=== PATIENT | female | born 1995 | race Caucasian/White ===

== ENCOUNTER 2023-04-20 11:46 | Outpatient (CLI) | payer OTHER | END 2023-04-20 11:58 | disposition home or self-care (01) | LOC: NST 11:46 | PROVIDERS: ATTEND Obstetrics & Gynecology | DX: O26.892 Other specified pregnancy related conditions, second trimester (principal); R10.2 Pelvic and perineal pain; Z3A.23 23 weeks gestation of pregnancy ==

== ENCOUNTER 2023-08-05 14:45 | Inpatient (IN) | payer OTHER ==
[~2023-08-05] VITALS: Ht 149.9 cm; Wt 69.4 kg
[2023-08-13] MEDS ORDERED: MORPHINE SULFATE 4 MG/ML CARTRIDGE IV PRN (03:30)
[2023-08-13] MEDS ORDERED: AMPICILLIN SODIUM 2,000 MG VIAL IV ONE (03:30)
[2023-08-13] MEDS ORDERED: RINGERS SOLUTION,LACTATED 1,000 ML IV SCH (03:30)
[2023-08-13] MEDS ORDERED: PRENATAL TABLE1 EAC1 PO (03:38)
[2023-08-13 03:39] LABS: HEMATOCRIT 32.4 % (36.0-45.00); HEMOGLOBIN 10.7 g/dL (12.0-15.00); MEAN CELL VOLUME 85.9 fL (80.00-100.00); MEAN CORPUSCULAR HEMOGLOBIN 28.4 pg (27.00-32.0); PLATELET COUNT 262 K/uL (150-450); RED BLOOD COUNT 3.78 M/uL (4.00-6.00); RED CELL DISTRIBUTION WIDTH 14.1 % (11.5-14.5)
[2023-08-13 04:10] LABS: ALBUMIN 2.7 gm/dL (3.4-5.0); BILIRUBIN TOTAL 0.26 mg/dL (0.3-1.2); CALCIUM 9.1 mg/dL (8.5-10.1); CREATININE SERUM 0.7 mg/dL (0.55-1.02); GFR 100.38; GLOBULINA 3.2 G/DL (2.4-3.5); POTASSIUM 3.79 mEq/L (3.5-5.1); TOTAL PROTEIN 5.9 gm/dL (6.4-8.2)
[2023-08-13 04:41] LABS: INR < 0.93; PARTIAL THROMBOPLASTIN TIME 32.3 SECONDS (22.0-34.0); PROTHROMBIN TIME 9.4 SECONDS (9.0-11.5)
[2023-08-13] MEDS ORDERED: AMPICILLIN SODIUM 1,000 MG VIAL IV SCH (08:00)
[2023-08-13] MEDS ORDERED: OXYTOCIN 500 ML IV SCH (12:15)
[2023-08-13] MEDS ORDERED: ERYTHROMYCIN BASE 1 GM TUBE OP ONE (13:53)
[2023-08-13] MEDS ORDERED: LIDOCAINE HCL 1% 200MG/20ML VIAL IJ ONE (13:53)
[2023-08-13] MEDS ORDERED: CHLORHEXIDINE GLUCONATE 120 ML BOTTLE TOP ONE (13:53)
[2023-08-13] MEDS ORDERED: OXYTOCIN 1,000 ML IV ONE (18:45)
[2023-08-13] MEDS ORDERED: LIDOCAINE HCL 1% 200MG/20ML VIAL IJ SCH (18:45)
[2023-08-13] MEDS ORDERED: IBUprofen 400 MG TABLET PO PRN (18:45)
[2023-08-13] MEDS ORDERED: CHLORHEXIDINE GLUCONATE 120 ML BOTTLE TP SCH (18:45)
[2023-08-13] MEDS ORDERED: ERYTHROMYCIN BASE 1 GM TUBE OP SCH (18:45)
[2023-08-13 19:00] LABS: ABG PH 7.296 (7.35-7.45); ABG PO2 32.4 mmHg (80-100); ABG pCO2 40.2 mmHg (35-45); BASE EXCESS -6.9 mmol/l; BICARBONATE 19.1 mmol/l (23-25); SaO2 52.9 %; Tco2 20.4 mmol/l; o2 21 %
[2023-08-14 08:42] LABS: HEMATOCRIT 31.2 % (36.0-45.00); HEMOGLOBIN 10.5 g/dL (12.0-15.00); MEAN CELL VOLUME 87.2 fL (80.00-100.00); MEAN CORPUSCULAR HEMOGLOBIN 29.3 pg (27.00-32.0); MEAN CORPUSCULAR HGB CONC 33.6 g/dl (32.0-36.0); PLATELET COUNT 255 K/uL (150-450); RED BLOOD COUNT 3.58 M/uL (4.00-6.00); RED CELL DISTRIBUTION WIDTH 13.9 % (11.5-14.5)
[2023-08-14] MEDS ORDERED: DOCUSATE SODIUM 100MG CAP PO SCH (09:00)
[2023-08-14] MEDS ORDERED: PNV,CALCIUM 72/IRON/FOLIC ACID 1 TAB TABLET PO SCH (09:00)
== END 2023-08-15 11:12 | disposition home or self-care (01) | DRG 807 ==
LOC: OB/GYN 08-13 03:17 → LDR 08-13 03:17 → OB/GYN 08-13 19:48 → LDR 08-17 14:45
PROVIDERS: Obstetrics & Gynecology Gynecology; ADMIT Obstetrics & Gynecology Maternal & Fetal Medicine; ATTEND Obstetrics & Gynecology Maternal & Fetal Medicine
PROC: 10E0XZZ Delivery of Products of Conception, External Approach (ICD-10-PCS; principal; 2023-08-13)
PROC: 0UQG7ZZ Repair Vagina, Via Natural or Artificial Opening (ICD-10-PCS; 2023-08-13)
PROC: 0UQMXZZ Repair Vulva, External Approach (ICD-10-PCS; 2023-08-13)
PROC: 4A1HXCZ Monitoring of Products of Conception, Cardiac Rate, External Approach (ICD-10-PCS; 2023-08-13)
DX: O71.4 Obstetric high vaginal laceration alone (principal); O71.82 Other specified trauma to perineum and vulva; Z37.0 Single live birth; Z3A.39 39 weeks gestation of pregnancy; Z20.822 Contact with and (suspected) exposure to COVID-19

== ENCOUNTER 2023-08-09 11:22 | Outpatient (CLI) | payer OTHER | END 2023-08-09 12:47 | disposition home or self-care (01) | LOC: NST 11:22 | PROVIDERS: ATTEND Obstetrics & Gynecology | DX: Z34.83 Encounter for supervision of other normal pregnancy, third trimester (principal) ==